=== PATIENT | female | born 1955 | race Caucasian/White ===

== ENCOUNTER → 2017-05-09 | Outpatient (CLI) | payer BC ==
--- NOTE | 2017-05-09 09:01 | REPMRS ---
Patient History The patient states she had a clinical breast exam in 05/19 Patient is postmenopausal. Family history of colorectal cancer in maternal grandmother at age 50 or over. Digital Woman Screen Mammo: May 09, 2017 - Exam #: [id number] Bilateral CC and MLO view(s) were taken. Technologist: Kinga Garcia, Technologist Prior study comparison: December 24, 2009, bilateral bilat screen digital mammo performed at [facility]. FINDINGS: There are scattered fibroglandular densities. The patient states that there are no palpable abnormalities or other breast complaints. There has been no change in the appearance of the mammogram from the prior studies. There is moderately dense fibroglandular tissue which is fairly symmetric. There is no interval development of dominant mass, areas of architectural distortion, or clustered microcalcification typical of malignancy. No significant changes when compared with prior studies. ASSESSMENT: BI-RADS/ACR category 1 mammogram. Negative. Recommendation Routine screening mammogram in 1 year (for women over age 40). This mammogram was interpreted with the aid of an FDA-approved computer-aided dectection system. A. Negative x-ray reports should not delay biopsy if a dominant or clinically suspicious mass is present. B. Not all cancers are identified by mammography. C. Adenosis and dense breast may obscure an underlying neoplasm. Electronically Signed By: Jovanny Silverio M.D. 05/09/17 0901
== END ==
LOC: M WHC 08:06
PROVIDERS: ATTEND Nurse Practitioner Family
DX: Z12.31 Encounter for screening mammogram for malignant neoplasm of breast (principal)

== ENCOUNTER → 2018-08-08 | Outpatient (CLI) | payer BC | LOC: M WHC 09:16 | DX: Z12.31 Encounter for screening mammogram for malignant neoplasm of breast (principal) | CPT/HCPCS: 77067 ==

== ENCOUNTER → 2019-08-09 | Outpatient (CLI) | payer BC, OTHER ==
--- NOTE | 2019-08-09 10:42 | REPMRS ---
Patient History The patient states she had a clinical breast exam in 08/2019. Family history of colorectal cancer at age 50 or over in maternal grandmother. Digital Woman Screen Mammo: August 09, 2019 - Exam #: [id number] Bilateral CC and MLO view(s) were taken. Technologist: Kinga Garcia, Technologist Prior study comparison: August 08, 2018, bilateral digital woman screen mammo performed at [facility]. May 09, 2017, digital woman screen mammo performed at [facility]. May 06, 2016, digital woman screen mammo performed at [facility]. FINDINGS: There are scattered fibroglandular densities. There has been no change in the appearance of the mammogram from the prior studies. There is a mild amount of scattered fibroglandular density which is fairly symmetric. There is no interval development of dominant mass, architectural distortion, or grouped microcalcification suggestive of malignancy. 3-D tomosynthesis shows no additional findings. Assessment: BI-RADS/ACR category 1 mammogram. Negative Mammogram. Recommendation Routine screening mammogram of both breasts in 1 year (for women over age 40). This patient's Lifetime Breast Cancer Risk is estimated at 8.2 %. This mammogram was interpreted with the aid of an FDA-approved computer-aided dectection system. Electronically Signed By: Nabeel Escobar MD 08/09/19 1042
== END ==
LOC: M WHC 09:12
PROVIDERS: ATTEND Nurse Practitioner Family
DX: Z12.31 Encounter for screening mammogram for malignant neoplasm of breast (principal); Z80.0 Family history of malignant neoplasm of digestive organs

== ENCOUNTER → 2019-08-09 | Outpatient (REF) | payer OTHER | LOC: M SFHCWAGY 09:46 | PROVIDERS: ATTEND Nurse Practitioner Family | DX: Z12.4 Encounter for screening for malignant neoplasm of cervix (principal) | CPT/HCPCS: 87624; G0123 ==

== ENCOUNTER → 2019-10-25 | Outpatient (CLI) | payer OTHER ==
[2019-10-25 17:03] LABS: BASO # 0.1 10^3/uL (0.0-0.2); BASO % 0.7 % (0.0-1.0); EOS # 0.1 10^3/uL (0.0-0.5); EOS % 1.7 % (0.0-3.0); HEMATOCRIT 39.1 % (36.0-47.0); HEMOGLOBIN 12.8 g/dl (12.0-15.5); LYMPH # 2.9 10^3/uL (1.5-5.0); LYMPH % 42.2 % (24.0-44.0); MEAN CORPUSCULAR HEMOGLOBIN 31.3 pg (27.0-33.0); MEAN CORPUSCULAR HGB CONC 32.7 g/dl (32.0-36.5); MEAN CORPUSCULAR VOLUME 95.6 fl (80.0-96.0); MONO # 0.7 10^3/uL (0.0-0.8); MONO % 10.6 % (0.0-5.0); NEUTROPHILS # 3.1 10^3/uL (1.5-8.5); NEUTROPHILS % 44.5 % (36.0-66.0); PLATELET COUNT, AUTOMATED 251 10^3/uL (150-450); RED BLOOD COUNT 4.09 10^6/uL (4.00-5.40); WHITE BLOOD COUNT 6.9 10^3/uL (4.0-10.0)
[2019-10-25 17:20] LABS: ALBUMIN 3.6 GM/DL (3.2-5.2); ALT/SGPT 18 U/L (12-78); BILIRUBIN,TOTAL 0.4 MG/DL (0.2-1.0); BLOOD UREA NITROGEN 13 MG/DL (7-18); CALCIUM LEVEL 8.9 MG/DL (8.8-10.2); CARBON DIOXIDE LEVEL 30 MEQ/L (21-32); CHLORIDE LEVEL 109 MEQ/L (98-107); CREATININE FOR GFR 0.83 MG/DL (0.55-1.30); GLOMERULAR FILTRATION RATE > 60.0 (>45); GLUCOSE, FASTING 57 MG/DL (70-100); POTASSIUM SERUM 3.8 MEQ/L (3.5-5.1); SODIUM LEVEL 144 MEQ/L (136-145); TOTAL PROTEIN 6.8 GM/DL (6.4-8.2)
[2019-10-25 17:31] LABS: TOTAL 25(OH) VITAMIN D 20.4 NG/ML (30.0-100.0)
[2019-10-25 17:32] LABS: FOLATE > 24.0 NG/ML (>5.4); VITAMIN B12 LEVEL 561 PG/ML (247-911)
== END ==
LOC: M WUC 13:42
PROVIDERS: ATTEND Psychiatry & Neurology Neurology
DX: R41.3 Other amnesia (principal)

== ENCOUNTER → 2020-08-12 | Outpatient (CLI) | payer MEDICARE, BC ==
--- NOTE | 2020-08-12 10:24 | REPMRS ---
Patient History The patient states she had a clinical breast exam in 08/2020. Patient is postmenopausal. Family history of colorectal cancer at age 50 or over in maternal grandmother. No Hormone Replacement Therapy Digital Woman Screen Mammo: August 12, 2020 - Exam #: [id number] Bilateral CC and MLO view(s) were taken. Technologist: Reina Hansen, Technologist Prior study comparison: August 09, 2019, bilateral digital woman screen mammo performed at [facility]. August 08, 2018, bilateral digital woman screen mammo performed at [facility]. May 09, 2017, digital woman screen mammo performed at [facility]. FINDINGS: There are scattered fibroglandular densities. The Volpara volumetric breast density category is:B. There has been no change in the appearance of the mammogram from the prior studies. There is a mild amount of scattered fibroglandular density which is fairly symmetric. There is no interval development of dominant mass, architectural distortion, or grouped microcalcification suggestive of malignancy. 3-D tomosynthesis shows no additional findings. Assessment: BI-RADS/ACR category 1 mammogram. Negative Mammogram. Recommendation Routine screening mammogram of both breasts in 1 year (for women over age 40). This patient's Lifetime Breast Cancer Risk is estimated at 7.9 %. This mammogram was interpreted with the aid of an FDA-approved computer-aided dectection system. Electronically Signed By: Nabeel Escobar MD 08/12/20 [id number]
== END ==
LOC: M WHC 09:24
PROVIDERS: ATTEND Nurse Practitioner Family
DX: Z12.31 Encounter for screening mammogram for malignant neoplasm of breast (principal); Z80.0 Family history of malignant neoplasm of digestive organs

== ENCOUNTER → 2020-08-20 | Outpatient (CLI) | payer MEDICARE, BC ==
--- NOTE | 2020-08-20 12:27 | DEXA ---
INDICATION: Z78.0 MENOPAUSAL STATE. COMPARISON: 03/28/2015 and 01/08/2010. TECHNIQUE: Bone density was measured using dual-energy x-ray absorptiometry (DEXA). FINDINGS: AP SPINE L1-L4 BMD 1.247 g/cm2 Young Adult T-Score 0.4 Age Matched Z-Score 2.0. LT FEMUR, TOTAL BMD 1.166 g/cm2 Young Adult T-Score 1.3 Age Matched Z-Score 82.5. LT NECK BMD 1.028 g/cm2 Young Adult T-Score -0.1 Age Matched Z-Score 1.4. RT FEMUR, TOTAL BMD 1.206 g/cm2 Young Adult T-Score 1.6 Age Matched Z-Score 2.8. RT NECK BMD 1.058 g/cm2 Young Adult T-Score 0.1 Age Matched Z-Score 1.6. IMPRESSION: There is normal bone density of the spine. There is normal bone density of the left hip. There is normal bone density of the right hip. The density of the spine has decreased 6.5% since the initial exam on 01/08/2010. The density of the spine decreased 3.1% since most recent exam on 03/28/2015. The density of the left hip has decreased 4.1% since initial exam on 01/08/2010. The density of the left hip has decreased 3.1% since most recent exam on 03/28/2015. The density of the right hip has decreased 2.0% since the initial exam on 01/08/2010. The density of the right hip has decreased 0.2% since the most recent exam on 03/28/2015. FOLLOW-UP: Recommendation for the next bone density exam: 2 years. <Electronically signed by Jovanny Tavarez > 08/20/20 1208
== END ==
LOC: M WHC 11:32
PROVIDERS: ATTEND Nurse Practitioner Family
DX: Z78.0 Asymptomatic menopausal state (principal)

== ENCOUNTER → 2020-09-08 | Outpatient (CLI) | payer SELFPAY | LOC: M LABSMTC 15:38 | PROVIDERS: ATTEND Pediatrics | DX: Z20.828 Contact with and (suspected) exposure to other viral communicable diseases (principal) ==

== ENCOUNTER → 2021-09-15 | Outpatient (CLI) | payer MEDICARE, BC ==
--- NOTE | 2021-09-15 15:44 | REPMRS ---
Patient History The patient states she had a clinical breast exam in August 2021. Family history of colorectal cancer at age 50 or over in maternal grandmother. No Hormone Replacement Therapy Patient states no breast complaints today. Patient has signed MRS History Sheet. Digital Woman Screen Mammo: September 15, 2021 - Exam #: [id number] Bilateral CC and MLO view(s) were taken. Technologist: Kinga Garcia, Technologist Prior study comparison: August 12, 2020, bilateral digital woman screen mammo performed at [facility]. August 09, 2019, bilateral digital woman screen mammo performed at [facility]. FINDINGS: There are scattered fibroglandular densities. Screening. Digital screening (2D) mammography was performed bilaterally in the CC and MLO projections. Additionally, breast tomosynthesis (3D mammography) was performed bilaterally in the CC and MLO projections. Todays exam was compared to the prior exam/exams. By history, the patient has no complaints of a palpable breast abnormality or other significant breast complaints. The breasts are unchanged in size and shape. There are no garfield-soft tissue densities or spiculated masses. There is no internal architectural distortion. Once again, stable benign appearing calcifications are seen.There are no suspicious garfield-calcific clusters. Skin thickening or nipple retraction is not present. IMPRESSION: BI-RADS Category 2- Benign Findings. There is no evidence of malignant alteration of the breasts. Followup examination recommended in one year. The Volpara volumetric breast density category is B, there are scattered areas of fibroglandular densities. This mammogram was [facility] assistance [facility] [employer],an FDA approved computer aided detection system for mammography. The lifetime Tyrer-Cuzick score is 7.5 % Negative x-ray reports should not delay surgical consultation if a dominant or clinically suspicious mass is present. Not all breast cancers can be identified by mammography. Therefore, we recommend that you continue to perform regular breast self-examination and physical examination and then promptly contact your physician of any concerns or changes. Adenosis and dense breasts may obscure an underlying neoplasm. Assessment: BI-RADS/ACR category 2 mammogram. Benign Findings. Recommendation Routine screening mammogram of both breasts in 1 year. Electronically Signed By: Turner Castillo DO 09/15/21 [id number]
== END ==
LOC: M WHC 13:27
PROVIDERS: ATTEND Nurse Practitioner Women's Health
DX: Z12.31 Encounter for screening mammogram for malignant neoplasm of breast (principal); Z80.0 Family history of malignant neoplasm of digestive organs; R92.1 Mammographic calcification found on diagnostic imaging of breast

== ENCOUNTER → 2021-11-30 | Outpatient (CLI) | payer MEDICARE, BC ==
[~2021-11-30] MED LIST: CLON2TAB7 PO; D31000TA2 PO; EQL50TAB2 PO; LEVO25TA5 PO; MELA2.5C2 PO; OLME20TA2 PO; PANT40TA29 PO; ROSU5TAB5 PO; SERT50TA29 PO; SYNT100T PO; XALA0.007 OU
== END ==
LOC: M LABSMTC 11:25
PROVIDERS: ATTEND Anesthesiology
DX: Z01.812 Encounter for preprocedural laboratory examination (principal); Z20.822 Contact with and (suspected) exposure to COVID-19

== ENCOUNTER 2021-12-04 08:57 | Day surgery (SDC) | payer MEDICARE, BC, OTHER ==
[~2021-12-04] VITALS: Ht 149.9 cm; Wt 70.2 kg
[~2021-12-04 08:57] MED LIST changes: -D31000TA2 PO; +LIDOCAINE 2% 100MG/5ML SDV (FOR ANES.) As Ordered ONE; +NS 1,000 ML IV ONE; +VITA100093 PO; +propofoL 200 MG/20 ML VIAL As Ordered ONE
[2021-12-04 11:55] VITALS: BP 121/61
== END 2021-12-04 12:10 | disposition home or self-care (01) ==
LOC: M OPP 08:57
PROVIDERS: ATTEND Internal Medicine Gastroenterology
DX: Z12.11 Encounter for screening for malignant neoplasm of colon (principal); Z80.0 Family history of malignant neoplasm of digestive organs; K57.30 Diverticulosis of large intestine without perforation or abscess without bleeding; I10 Essential (primary) hypertension; E78.5 Hyperlipidemia, unspecified; K21.9 Gastro-esophageal reflux disease without esophagitis; Z79.899 Other long term (current) drug therapy; E03.9 Hypothyroidism, unspecified; Z88.5 Allergy status to narcotic agent

== ENCOUNTER → 2022-08-12 | Outpatient (CLI) | payer MEDICARE, BC, OTHER ==
[~2022-08-12] MED LIST changes: -LIDOCAINE 2% 100MG/5ML SDV (FOR ANES.) As Ordered ONE; -NS 1,000 ML IV ONE; -propofoL 200 MG/20 ML VIAL As Ordered ONE
[2022-08-12 12:05] LABS: BASO # 0.1 10^3/uL (0.0-0.2); BASO % 1.1 % (0.0-1.0); EOS # 0.2 10^3/uL (0.0-0.5); EOS % 3.6 % (0.0-3.0); HEMATOCRIT 38.2 % (36.0-47.0); HEMOGLOBIN 12.4 g/dl (12.0-15.5); LYMPH # 3.2 10^3/uL (1.5-5.0); LYMPH % 47.7 % (24.0-44.0); MEAN CORPUSCULAR HEMOGLOBIN 30.8 pg (27.0-33.0); MEAN CORPUSCULAR HGB CONC 32.5 g/dl (32.0-36.5); MEAN CORPUSCULAR VOLUME 94.8 fl (80.0-96.0); MONO # 0.5 10^3/uL (0.0-0.8); MONO % 7.7 % (2.0-8.0); NEUTROPHILS # 2.6 10^3/uL (1.5-8.5); NEUTROPHILS % 39.6 % (36.0-66.0); PLATELET COUNT, AUTOMATED 243 10^3/uL (150-450); RED BLOOD COUNT 4.03 10^6/uL (4.00-5.40); WHITE BLOOD COUNT 6.6 10^3/uL (4.0-10.0)
[2022-08-12 13:15] LABS: ALBUMIN 3.5 GM/DL (3.2-5.2); ALT/SGPT 21 U/L (12-78); BILIRUBIN,TOTAL 0.4 MG/DL (0.2-1.0); BLOOD UREA NITROGEN 11 MG/DL (7-18); CALCIUM LEVEL 8.9 MG/DL (8.8-10.2); CARBON DIOXIDE LEVEL 28 MEQ/L (21-32); CHLORIDE LEVEL 107 MEQ/L (98-107); CHOLESTEROL LEVEL 160 MG/DL (<200); CHOLESTEROL RISK RATIO 3.137 (<5); CREATININE FOR GFR 0.84 MG/DL (0.55-1.30); GLOMERULAR FILTRATION RATE > 60.0 (>45); GLUCOSE, FASTING 96 MG/DL (70-100); HDL CHOLESTEROL 51 MG/DL (>40); LDL CHOLESTEROL 73 MG/DL (<100); NON-HDL-C 109 MG/DL; POTASSIUM SERUM 4.1 MEQ/L (3.5-5.1); SODIUM LEVEL 141 MEQ/L (136-145); TOTAL PROTEIN 6.9 GM/DL (6.4-8.2); TRIGLYCERIDES LEVEL 179 MG/DL (<150)
== END ==
LOC: M WUC 10:36
PROVIDERS: ATTEND Physician Assistant
DX: D50.9 Iron deficiency anemia, unspecified (principal); I10 Essential (primary) hypertension; E78.5 Hyperlipidemia, unspecified

== ENCOUNTER → 2022-11-24 | Outpatient (CLI) | payer MEDICARE, BC, OTHER ==
[2022-11-24 16:32] LABS: BASO # 0.1 10^3/uL (0.0-0.2); BASO % 0.8 % (0.0-1.0); EOS # 0.1 10^3/uL (0.0-0.5); EOS % 1.6 % (0.0-3.0); HEMATOCRIT 40.7 % (36.0-47.0); HEMOGLOBIN 13.4 g/dl (12.0-15.5); LYMPH # 4.1 10^3/uL (1.5-5.0); LYMPH % 46.9 % (24.0-44.0); MEAN CORPUSCULAR HEMOGLOBIN 31.1 pg (27.0-33.0); MEAN CORPUSCULAR HGB CONC 32.9 g/dl (32.0-36.5); MEAN CORPUSCULAR VOLUME 94.4 fl (80.0-96.0); MONO # 0.8 10^3/uL (0.0-0.8); MONO % 8.9 % (2.0-8.0); NEUTROPHILS # 3.6 10^3/uL (1.5-8.5); NEUTROPHILS % 41.5 % (36.0-66.0); PLATELET COUNT, AUTOMATED 254 10^3/uL (150-450); RED BLOOD COUNT 4.31 10^6/uL (4.00-5.40); WHITE BLOOD COUNT 8.8 10^3/uL (4.0-10.0)
[2022-11-24 17:35] LABS: ALKALINE PHOSPHATASE 63 U/L (46-116); ALT/SGPT 20 U/L (7.0-40); AST/SGOT 22 U/L (<34); BILIRUBIN,TOTAL 0.8 MG/DL (0.3-1.2); BLOOD UREA NITROGEN 13 MG/DL (9-23); CALCIUM LEVEL 9.8 MG/DL (8.3-10.6); CARBON DIOXIDE LEVEL 28 MMOL/L (20-31); CHLORIDE LEVEL 107 MMOL/L (98-107); CHOLESTEROL LEVEL 144 MG/DL (<200); CHOLESTEROL RISK RATIO 2.71 (<5); GLOMERULAR FILTRATION RATE > 60.0 (>45); GLUCOSE, FASTING 133 MG/DL (74-106); HDL CHOLESTEROL 53.1 MG/DL (>40); NON-HDL-C 91 MG/DL; SODIUM LEVEL 142 MMOL/L (136-145)
[2022-11-24 19:06] LABS: LDL CHOLESTEROL 70.7 MG/DL (<100); TOTAL PROTEIN 7.3 G/DL (5.7-8.2); TRIGLYCERIDES LEVEL 101 MG/DL (<150)
[2022-11-25 16:05] LABS: HEMOGLOBIN A1c 5.5 % (4.0-6.0)
== END ==
LOC: M WUC 13:57
PROVIDERS: ATTEND Physician Assistant
DX: D50.9 Iron deficiency anemia, unspecified (principal); I10 Essential (primary) hypertension; E78.5 Hyperlipidemia, unspecified

== ENCOUNTER → 2022-12-08 | Outpatient (CLI) | payer MEDICARE, BC, OTHER | LOC: M WHC 07:34 | PROVIDERS: ATTEND Nurse Practitioner Family | DX: Z01.419 Encounter for gynecological examination (general) (routine) without abnormal findings (principal); Z12.31 Encounter for screening mammogram for malignant neoplasm of breast; R87.610 Atypical squamous cells of undetermined significance on cytologic smear of cervix (ASC-US) | CPT/HCPCS: 77063; 77067; 87624; G0101; G0123 ==

== ENCOUNTER → 2022-12-08 | Outpatient (REF) | payer MEDICARE, BC, OTHER | LOC: M SFHCWAGY 18:10 | PROVIDERS: ATTEND Nurse Practitioner Family | DX: Z12.4 Encounter for screening for malignant neoplasm of cervix (principal); R87.610 Atypical squamous cells of undetermined significance on cytologic smear of cervix (ASC-US) ==

== ENCOUNTER → 2023-12-12 | Outpatient (CLI) | payer MEDICARE, BC ==
[~2023-12-12] MED LIST changes: -MELA2.5C2 PO; +MELA2.5T11 PO; -OLME20TA2 PO; +OLME20TA50 PO
== END ==
LOC: M WHC 13:57
PROVIDERS: ATTEND Nurse Practitioner Family
DX: Z01.419 Encounter for gynecological examination (general) (routine) without abnormal findings (principal); N95.1 Menopausal and female climacteric states; Z12.39 Encounter for other screening for malignant neoplasm of breast; Z12.31 Encounter for screening mammogram for malignant neoplasm of breast; R92.323 Mammographic fibroglandular density, bilateral breasts; Z88.5 Allergy status to narcotic agent; Z79.51 Long term (current) use of inhaled steroids; Z80.1 Family history of malignant neoplasm of trachea, bronchus and lung; Z80.7 Family history of other malignant neoplasms of lymphoid, hematopoietic and related tissues; Z87.891 Personal history of nicotine dependence
CPT/HCPCS: 77063; 77067; 87624; G0101; G0123; G0463; Q0091

== ENCOUNTER → 2023-12-12 | Outpatient (REF) | payer MEDICARE, BC | LOC: M SFHCWAGY 08:14 | PROVIDERS: ATTEND Nurse Practitioner Family | DX: Z12.4 Encounter for screening for malignant neoplasm of cervix (principal) | CPT/HCPCS: 87624; G0123 ==

== ENCOUNTER → 2023-12-13 | Outpatient (CLI) | payer MEDICARE, BC ==
[2023-12-13 16:28] LABS: HEMATOCRIT 40.7 % (36.0-47.0); HEMOGLOBIN 13.5 g/dl (12.0-15.5); MEAN CORPUSCULAR HEMOGLOBIN 31.7 pg (27.0-33.0); MEAN CORPUSCULAR HGB CONC 33.2 g/dl (32.0-36.5); MEAN CORPUSCULAR VOLUME 95.5 fl (80.0-96.0); PLATELET COUNT, AUTOMATED 261 10^3/uL (150-450); RED BLOOD COUNT 4.26 10^6/uL (4.00-5.40)
[2023-12-13 16:57] LABS: ALBUMIN 3.8 G/DL (3.2-5.2); ALKALINE PHOSPHATASE 55 U/L (46-116); ALT/SGPT 15 U/L (7.0-40); AST/SGOT 17 U/L (<34); BILIRUBIN,TOTAL 0.4 MG/DL (0.3-1.2); BLOOD UREA NITROGEN 13 MG/DL (9-23); CALCIUM LEVEL 8.6 MG/DL (8.3-10.6); CARBON DIOXIDE LEVEL 29 MMOL/L (20-31); CHLORIDE LEVEL 109 MMOL/L (98-107); CHOLESTEROL LEVEL 116 MG/DL (<200); CHOLESTEROL RISK RATIO 2.68 (<5); CREATININE FOR GFR 0.92 MG/DL (0.55-1.30); GLOMERULAR FILTRATION RATE > 60.0 (>45); GLUCOSE, FASTING 90 MG/DL (74-106); HDL CHOLESTEROL 43.2 MG/DL (>40); NON-HDL-C 72.8 MG/DL; SODIUM LEVEL 143 MMOL/L (136-145); THYROID STIMULATING HORMONE 1.286 uIU/ML (0.55-4.78); TOTAL PROTEIN 6.7 G/DL (5.7-8.2); TRIGLYCERIDES LEVEL 144 MG/DL (<150)
[2023-12-14 14:13] LABS: WHITE BLOOD COUNT 7.4 10^3/uL (4.0-10.0)
== END ==
LOC: M WUC 10:58
PROVIDERS: ATTEND Physician Assistant
DX: I10 Essential (primary) hypertension (principal); E78.5 Hyperlipidemia, unspecified; E03.9 Hypothyroidism, unspecified

== ENCOUNTER 2024-01-06 05:54 | Emergency (ER) | payer MEDICARE, BC, OTHER ==
[~2024-01-06] VITALS: Ht 152.4 cm; Wt 65.9 kg
[2024-01-06] MEDS: LIDOCAINE W/EPINEPHRINE 1% 20ML VIAL SC ONE (07:40)
[2024-01-06] MEDS: ACETAMINOPHEN TAB 650MG DOSE (2X325MG) PO ONE (07:43)
[2024-01-06] MEDS: BACITRACIN OINTMENT 30GM TUBE TOP ONE (09:39)
[2024-01-06 09:43] VITALS: BP 119/70; TEMP 97.3; O2SAT 98
== END 2024-01-06 09:47 | disposition home or self-care (01) ==
LOC: M ED 05:54
DX: S01.81XA Laceration without foreign body of other part of head, initial encounter (principal); H11.32 Conjunctival hemorrhage, left eye; W20.8XXA Other cause of strike by thrown, projected or falling object, initial encounter; Y92.009 Unspecified place in unspecified non-institutional (private) residence as the place of occurrence of the external cause; Y93.89 Activity, other specified; Y99.9 Unspecified external cause status; I10 Essential (primary) hypertension; E03.9 Hypothyroidism, unspecified; Z79.899 Other long term (current) drug therapy; Z88.5 Allergy status to narcotic agent

== ENCOUNTER 2024-05-03 09:49 | Emergency (ER) | payer MEDICARE, BC, OTHER ==
[~2024-05-03] VITALS: Ht 152.4 cm; Wt 62.4 kg
[~2024-05-03 09:49] MED LIST changes: +ROSU5TAB40 PO; -ROSU5TAB5 PO
[2024-05-03 12:46] VITALS: BP 151/67; TEMP 97.3; O2SAT 99
== END 2024-05-03 12:51 | disposition home or self-care (01) ==
LOC: M ED 09:49
DX: M25.422 Effusion, left elbow (principal); X58.XXXA Exposure to other specified factors, initial encounter; Y92.009 Unspecified place in unspecified non-institutional (private) residence as the place of occurrence of the external cause; Y93.K1 Activity, walking an animal; Y99.9 Unspecified external cause status; I10 Essential (primary) hypertension; I25.10 Atherosclerotic heart disease of native coronary artery without angina pectoris; Z79.899 Other long term (current) drug therapy; Z88.5 Allergy status to narcotic agent

== ENCOUNTER → 2025-05-29 | Outpatient (REF) | payer MEDICARE, BC, OTHER ==
[~2025-05-29] MED LIST changes: -EQL50TAB2 PO; -ROSU5TAB40 PO; +ROSU5TAB49 PO; +VITA1TAB82 PO
[2025-05-29 13:17] LABS: APPEARANCE, URINE HAZY (CLEAR); BACTERIA, URINE AUTO NEGATIVE (NEGATIVE); BILIRUBIN, URINE AUTO NEGATIVE (NEGATIVE); BLOOD, URINE BLOOD NEGATIVE (NEGATIVE); GLUCOSE, URINE (UA) AUTO NEGATIVE (NEGATIVE); KETONE, URINE AUTO NEGATIVE (NEGATIVE); LEUKOCYTE ESTERASE, URINE AUTO NEGATIVE (NEGATIVE); NITRITE, URINE AUTO NEGATIVE (NEGATIVE); PROTEIN, URINE AUTO NEGATIVE (NEGATIVE); RBC, URINE AUTO 0 /HPF (0-3); SPECIFIC GRAVITY URINE AUTO 1.015 (1.002-1.035); SQUAMOUS EPITHELIAL CELL UR AU 0 /HPF (0-6); UROBILINOGEN, URINE AUTO 0.2 mg/dL (0.0-2.0); WBC, URINE AUTO 0 /HPF (0-3)
== END ==
LOC: M SMT 12:50
PROVIDERS: ATTEND Nurse Practitioner Family
DX: R39.15 Urgency of urination (principal)

== ENCOUNTER → 2025-07-06 | Outpatient (CLI) | payer MEDICARE, BC ==
[2025-07-06 10:36] LABS: PLATELET COUNT, AUTOMATED 246 10^3/uL (150-450)
[2025-07-06 11:07] LABS: ALT/SGPT 27.0 U/L (7.0-40); AST/SGOT 19.0 U/L (<34); CALCIUM LEVEL 8.8 MG/DL (8.3-10.6); CARBON DIOXIDE LEVEL 31.0 MMOL/L (20-31); CHLORIDE LEVEL 105.0 MMOL/L (98-107); CHOLESTEROL LEVEL 153.0 MG/DL (<200); CHOLESTEROL RISK RATIO 2.27 (<5); CREATININE FOR GFR 0.93 MG/DL (0.55-1.30); GLOMERULAR FILTRATION RATE 66.1 (>39); LDL CHOLESTEROL 69.8 MG/DL (<100); NON-HDL-C 85.8 MG/DL; POTASSIUM SERUM 4.1 MMOL/L (3.5-5.1); SODIUM LEVEL 141.0 MMOL/L (136-145); TRIGLYCERIDES LEVEL 80.0 MG/DL (<150)
== END ==
LOC: M LAB 10:01
PROVIDERS: ATTEND Physician Assistant
DX: E78.5 Hyperlipidemia, unspecified (principal); E03.9 Hypothyroidism, unspecified; I10 Essential (primary) hypertension

== ENCOUNTER → 2025-07-10 | Outpatient (CLI) | payer MEDICARE, BC ==
[2025-07-10 13:56] LABS: PLATELET COUNT, AUTOMATED 224 10^3/uL (150-450)
[2025-07-10 14:29] LABS: ALT/SGPT 38.0 U/L (7.0-40); AST/SGOT 29.0 U/L (<34); CALCIUM LEVEL 8.9 MG/DL (8.3-10.6); CARBON DIOXIDE LEVEL 30.0 MMOL/L (20-31); CHLORIDE LEVEL 104.0 MMOL/L (98-107); CREATININE FOR GFR 0.91 MG/DL (0.55-1.30); GLOMERULAR FILTRATION RATE 67.9 (>39); POTASSIUM SERUM 4.0 MMOL/L (3.5-5.1); SODIUM LEVEL 141.0 MMOL/L (136-145)
== END ==
LOC: M WUC 08:45
PROVIDERS: ATTEND Physician Assistant
DX: R79.89 Other specified abnormal findings of blood chemistry (principal); D51.8 Other vitamin B12 deficiency anemias

== ENCOUNTER → 2025-08-20 | Outpatient (CLI) | payer MEDICARE, BC | LOC: M CARPUL 14:00 | PROVIDERS: ATTEND Physician Assistant | DX: I08.0 Rheumatic disorders of both mitral and aortic valves (principal) ==